=== PATIENT | female | born 1990 | race Caucasian/White ===

== ENCOUNTER 2017-03-17 03:12 | Emergency (ER) | payer OTHER ==
--- NOTE | 2017-03-17 03:58 | ER Document Report ---
HPI - HPI Patient complains to provider of: abscess lateral left lower leg Onset: Other - few days, used heat on it Onset/Duration: Gradual Quality of pain: Throbbing Pain Level: 3 Context: 26 yo normally healthy female with abscess left lower lateral leg. No hx MRSA. NKA Associated Symptoms: None Exacerbated by: Denies Relieved by: Denies - ROS ROS below otherwise negative: Yes Systems Reviewed and Negative: Yes All other systems reviewed and negative - REPRODUCTIVE LMP: 03/11/2017 Reproductive: DENIES: : - DERM Skin Color: Normal Past Medical History - General Information source: Patient - Social History Smoking Status: Current Every Day Smoker Chew tobacco use (# tins/day): No Frequency of alcohol use: None Drug Abuse: None Lives with: Spouse/Significant other Family History: Reviewed & Not Pertinent Patient has suicidal ideation: No Patient has homicidal ideation: No - Medical History Medical History: Negative Renal/ Medical History: Denies: Hx Peritoneal Dialysis Surgical Hx: Negative - Immunizations Hx Diphtheria, Pertussis, Tetanus Vaccination: Yes Vertical Provider Document - CONSTITUTIONAL Agree With Documented VS: Yes Exam Limitations: No Limitations General Appearance: No Apparent Distress - INFECTION CONTROL TRAVEL OUTSIDE OF THE [place] IN LAST 30 DAYS: No - MUSCULOSKELETAL/EXTREMETIES Musculoskeletal/Extremeties: MAEW, FROM, Tender - left lateral lower leg abscess , 2 cm induration, 2mm crusted center - NEURO Level of Consciousness: Awake, Alert - DERM Integumentary: Abscess Course - Vital Signs Vital signs: Temp Pulse Resp BP Pulse Ox 18 03/17/17 03:21 Procedures - Incision and Drainage Left Leg Time completed: 04:53 Type: Simple Anesthetic type: 1% Lidocaine mL's of anesthetic: 3 Blade size: 11 I&D procedure: Sterile dressing applied, Other - surgiscrub prep Incision Method: Incision made by scalpel Amount/type of drainage: large pus Notes: 03/17/17 04:53 corner of 4 x 4 placed in incision, coban dressing Discharge - Discharge Clinical Impression: left lateral lower leg abscess I & D Condition: Good Disposition: HOME, SELF-CARE Instructions: Abscess ([facility]), Post Incision and Drainage, Trimethoprim-Sulfa ( [facility]), Warm Packs ([facility]) Additional Instructions: warm compress finish the antibiotics to er if worse wash with antibacterial soap/dry dressing daily Please complete the patient satisfaction survey if you get one, and return it.. If you do not receive a survey, then you can go to the [facility] website, [email or web address] and place your comments about your very good care. Thank you very much. It was a pleasure being your medical provider today. Prescriptions: Sulfamethoxazole/Trimethoprim [Sulfamethoxazole-Tmp Ds Tablet] 1 each PO BID # 14 tablet
[2017-03-17] MEDS ORDERED: SULFAMETHOXAZOLE/TRIMETHOPRIM 800-160 MG TABLET PO ONE (03:59)
[2017-03-17 05:20] VITALS: BP 125/77
== END 2017-03-17 04:51 | disposition home or self-care (01) ==
LOC: ER 03:12
PROC: 0H9LXZZ Drainage of Left Lower Leg Skin, External Approach (ICD-10-PCS; principal; 2017-03-17)
DX: L02.416 Cutaneous abscess of left lower limb (principal); F17.200 Nicotine dependence, unspecified, uncomplicated
CPT/HCPCS: 99283

== ENCOUNTER 2018-05-28 17:39 | Emergency (ER) | payer SELFPAY ==
--- NOTE | 2018-05-28 20:05 | RADIOLOGY REPORT (SQ) ---
EXAM DESCRIPTION: ELBOW RIGHT OVER 2 VIEWS COMPLETED DATE/TIME: 05/28/2018 7:54 pm REASON FOR STUDY: pain right arm COMPARISON: None. NUMBER OF VIEWS: Four views. TECHNIQUE: AP, lateral, and both oblique radiographic images acquired of the right elbow. LIMITATIONS: None. FINDINGS: MINERALIZATION: Normal. BONES: No acute fracture or dislocation. No worrisome bone lesions. JOINT: No effusion. SOFT TISSUES: No soft tissue swelling. No foreign body. OTHER: Extensive orthopedic hardware is identified at the level of the distal humerus and olecranon p rocess of the proximal ulna. IMPRESSION: Orthopedic hardware related to previous trauma. No acute fracture or dislocation. Othe r findings as noted above TECHNICAL DOCUMENTATION: JOB ID: [id number] [facility]- All Rights Reserved Reading location - IP/workstation name: [email or web address]
--- NOTE | 2018-05-28 20:28 | ER Document Report ---
ED Extremity Problem, Upper - General Chief Complaint: Arm Pain Stated Complaint: RIGHT HAND PAIN/NUMBNESS Time Seen by Provider: 05/28/18 18:57 Mode of Arrival: Ambulatory Information source: Patient Notes: 27-year-old female presented to ED for numbness to the right arm from the shoulder to the fingertips. As well as pain and tenderness. She states she sometimes bumps it but she does not know of any definite injury at this time. Patient does have a history of surgery to the right elbow with plates and screws. She states today the arm and hand turn purple. Patient is alert and oriented respirations regular and unlabored speaking in full sentences walking with a even steady gait. TRAVEL OUTSIDE OF THE [place] IN LAST 30 DAYS: No - HPI Patient complains to provider of: Pain - And numbness from shoulder to fingertips at intervals, Right Onset: Yesterday Recent injury: No Quality of pain: Achy Severity of pain: Moderate Pain Level: 3 Associated symptoms: Numbness, Other - Tenderness Exacerbated by: Movement, Exertion Relieved by: Nothing Similar symptoms previously: Yes Recently seen / treated by doctor: No - Related Data Allergies/Adverse Reactions: No Known Allergies Allergy (Verified 03/17/17 03:18) Past Medical History - General Information source: Patient - Social History Smoking Status: Never Smoker Cigarette use (# per day): No Chew tobacco use (# tins/day): No Smoking Education Provided: No Frequency of alcohol use: Social Drug Abuse: None Occupation: [employer] Lives with: Family Family History: Reviewed & Not Pertinent Patient has suicidal ideation: No Patient has homicidal ideation: No - Past Medical History Cardiac Medical History: Reports: None Pulmonary Medical History: Reports: None EENT Medical History: Reports: None Neurological Medical History: Reports: None Endocrine Medical History: Reports: None Renal/ Medical History: Reports: None Malignancy Medical History: Reports: None GI Medical History: Reports: None Musculoskeletal Medical History: Reports Hx Musculoskeletal Deformity, Reports Hx Musculoskeletal Trauma Skin Medical History: Reports None Traumatic Medical History: Reports: Hx Fractures - Right elbow right fifth metatarsal Infectious Medical History: Reports: None Past Surgical History: Reports: Hx Oral Surgery - [place] teeth, Hx Orthopedic Surgery - [facility] right elbow with plates and screws - Immunizations Hx Diphtheria, Pertussis, Tetanus Vaccination: Yes History of Influenza Vaccine for 03/2017 - 08/2017 Season: No Review of Systems - Review of Systems Constitutional: No symptoms reported EENT: No symptoms reported Cardiovascular: No symptoms reported Respiratory: No symptoms reported Gastrointestinal: No symptoms reported Genitourinary: No symptoms reported Female Genitourinary: No symptoms reported Musculoskeletal: Other - Pain and numbness to the right arm she originally stated that her pain and numbness was from the shoulder to the fingers and then she stated it is more circumferential from the elbows to the fingers. Then she stated it was just in spots to her arm and her hand Skin: No symptoms reported Hematologic/Lymphatic: No symptoms reported Neurological/Psychological: No symptoms reported -: Yes All other systems reviewed and negative Physical Exam - Vital signs Vitals: Temp Pulse Resp BP Pulse Ox 99.5 F 95 18 128/81 H 97 05/28/18 17:55 05/28/18 17:55 05/28/18 17:55 05/28/18 17:55 05/28/18 17:55 Interpretation: Normal - General General appearance: Appears well, Alert - HEENT Head: Normocephalic, Atraumatic Eyes: Normal Pupils: PERRL - Respiratory Respiratory status: No respiratory distress Chest status: Nontender Breath sounds: Normal Chest palpation: Normal - Cardiovascular Rhythm: Regular Heart sounds: Normal auscultation Murmur: No - Abdominal Inspection: Normal Distension: No distension Bowel sounds: Normal Tenderness: Nontender Organomegaly: No organomegaly - Back Back: Normal, Nontender - Extremities General upper extremity: Normal inspection, Normal color, Normal ROM, Normal temperature General lower extremity: Normal inspection, Nontender, Normal color, Normal ROM , Normal temperature, Normal weight bearing. No: Maverick's sign Elbow: Tender - Right, Other - scars from surgery patient states that she has pain and numbness from the elbow to the fingertips.. No: Abrasion, Deformity, Dislocation, Ecchymosis, Instability, Joint effusion, Laceration, Limited ROM, Swollen bursa Forearm: Tender - Right. No: Abrasion, Deformity, Ecchymosis, Instability, Laceration Wrist: Tender Hand: Tender, No evidence of human bite, No evidence of FB. No: Abrasion, Deformity, Dislocation, Ecchymosis, Instability, Laceration, Nail injury, Swelling, Tendon deficit - Neurological Neuro grossly intact: Yes Cognition: Normal Orientation: AAOx4 [place] Coma Scale Eye Opening: Spontaneous John Coma Scale Verbal: Oriented John Coma Scale Motor: Obeys Commands John Coma Scale Total: 15 Speech: Normal Motor strength normal: LUE, RUE, LLE, RLE Sensory: Normal - Psychological Associated symptoms: Normal affect, Normal mood - Skin Skin Temperature: Warm Skin Moisture: Dry Skin Color: Normal Course - Re-evaluation Re-evalutation: 05/28/18 20:49 X-ray results were discussed with patient and written report of x-rays were given to patient. Patient was also shown the actual x-ray on the computer. There are no acute changes to the elbow at this time. Patient had full range of motion to the shoulder elbow hand wrist and fingers. She had 5 out of 5 strength on her shoulder and elbow. She had a firm admission nurse coordinator with her hand. Patient was treated with a sling for her discomfort and given instructions to follow-up with Dr. Delgado who did her surgery in 2014. - Vital Signs Vital signs: Temp Pulse Resp BP Pulse Ox 99.5 F 95 18 128/81 H 97 05/28/18 17:55 05/28/18 17:55 05/28/18 17:55 05/28/18 17:55 05/28/18 17:55 - Diagnostic Test Radiology reviewed: Image reviewed, Reports reviewed Procedures - Immobilization Right Elbow Time completed: 21:00 Pre-Proc Neuro Vasc Exam: Normal Immobilizer type: Sling Performed by: PCT Post-Proc Neuro Vasc Exam: Normal Alignment checked and good: Yes Discharge - Discharge Clinical Impression: Right elbow pain, Arm paresthesia, right Condition: Stable Disposition: HOME, SELF-CARE Instructions: Forearm Exercise Program ([facility]) Additional Instructions: Arm Pain, Nonspecific We did not find an obvious cause for your arm pain. There's no sign of blood clot, infection, heart attack, stroke, or other serious disease. Most of the time, this type of pain goes away. If it does, no further evaluation is necessary. If pain continues or keeps coming back, we can do further testing. Possible causes of vague arm pain include muscle or joint inflammation, disc disease in the neck, pressure on the nerves and artery in the chest or armpit ("thoracic outlet syndrome"), or heart disease. Rest the arm. Pain can be eased with an antiinflammatory pain medicine such as ibuprofen. If the pain involves a small area, a heating pad might help. Call the doctor or return if the arm becomes swollen, weak, discolored, or increasingly painful, or if you develop any other significant change in your health. You have stated that you have decreased feeling to your right arm. The x-ray shows that your plates and screws to the right arm are stable and there is no acute injuries noted on the x-ray. I have given you the name and number of the orthopedic surgeon who you state did the surgery in 2014 and I would like for you to call them tomorrow for follow-up visit. Acetaminophen Acetaminophen may be taken for pain relief or fever control. It's much safer than aspirin, offering a wider range of "safe" dosages. It is safe during . Some brand names are Tylenol, Panadol, Datril, Anacin 3, Tempra, and Liquiprin. Acetaminophen can be repeated every four hours. The following are maximum recommended dosages: WEIGHT Dose Drops Elixir Chewable( 80mg) (LBS.) drprs=droppers tsp=teaspoon 6 40 mg .4 ml (1/2) 6-11 80 mg .8 ml (full) 1/2 tsp 1 tab 12-16 120 mg 1 1/2 drprs 3/4 tsp 1 1/2 tabs 17-23 160 mg 2 drprs 1 tsp 2 tabs 24-30 240 mg 3 drprs 1 1/2 tsp 3 tabs 30-35 320 mg 2 tsp 4 tabs 36-41 360 mg 2 1/4 tsp 4 1 /2 tabs 42-47 400 mg 2 1/2 tsp 5 tabs 48-53 480 mg 3 tsp 6 tabs 54-59 520 mg 3 1/4 tsp 6 1 /2 tabs 60-64 560 mg 3 1/2 tsp 7 tabs 65-70 600 mg 3 3/4 tsp 7 1 /2 tabs 71-76 640 mg 4 tsp 8 tabs 77-82 720 mg 4 1/2 tsp 9 tabs 83-88 800 mg 5 tsp 10 tabs >89 pounds or adults 650 mg to 900 mg Acetaminophen can be repeated every four hours. Maximum daily dose not to exceed 4000 mg. These maximum recommended dosages are slightly higher than the dosages written on the product container, but these dosages are very safe and well below the toxic dosage for acetaminophen. Ibuprofen Ibuprofen is an excellent, safe drug for pain control. In addition, it has potent antiinflammatory effects which are beneficial, especially in the treatment of injuries, arthritis, or tendonitis. It's best to take ibuprofen with food. Persons with ulcer disease or allergy to aspirin should notify their physician of this before taking ibuprofen. Take the medication exactly as prescribed. Don't take additional doses unless instructed to do so by your doctor. If you develop wheezing, shortness of breath, hives, faintness, stomach pain, vomiting, or dark black stools, return for re-evaluation at once. I have ordered a sling to help you with the discomfort to your arm. Only wear this when you are up and walking around. Do not wear this to bed or when you are reclining in a chair. FOLLOW-UP CARE: If you have been referred to a physician for follow-up care, call the physician s office for an appointment as you were instructed or within the next two days. If you experience worsening or a significant change in your symptoms, notify the physician immediately or return to the Emergency Department at any time for re-evaluation. Forms: Elevated Blood Pressure, Return to Work Referrals: CHUCKIE LOPEZ MD [ACTIVE STAFF] - Follow up as needed
[2018-05-28 21:41] VITALS: BP 129/88
== END 2018-05-28 21:42 | disposition home or self-care (01) ==
LOC: ER 17:39
DX: M25.521 Pain in right elbow (principal); R20.0 Anesthesia of skin; Z98.890 Other specified postprocedural states; Z87.81 Personal history of (healed) traumatic fracture
CPT/HCPCS: 99283

== ENCOUNTER → 2019-02-09 | Outpatient (CLI) | payer SELFPAY ==
[2019-02-09 15:47] LABS: ABSOLUTE EOSINOPHILS # (AUTO) 0.1 10^3/uL (0.0-0.6); ABSOLUTE LYMPHOCYTES (AUTO) 2.2 10^3/uL (0.5-4.7); ABSOLUTE MONOCYTES (AUTO) 0.6 10^3/uL (0.1-1.4); ABSOLUTE NEUT (AUTO) 5.1 10^3/uL (1.7-8.2); BASOPHILS % (AUTO) 0.3 % (0-2); EOSINOPHILS % (AUTO) 1.5 % (0-6); HEMATOCRIT 38.6 % (36.0-47.0); HEMOGLOBIN 13.4 g/dL (12.0-15.5); LYMPHOCYTES % (AUTO) 27.3 % (13-45); MEAN CORPUSCULAR HEMOGLOBIN 29.2 pg (27.0-33.4); MEAN CORPUSCULAR HGB CONC 34.6 g/dL (32.0-36.0); MEAN CORPUSCULAR VOLUME 84 fl (80-97); PLATELET COUNT 262 10^3/uL (150-450); RED BLOOD COUNT 4.58 10^6/uL (3.72-5.28); RED CELL DISTRIBUTION WIDTH 12.7 % (11.5-14.0); SEGMENTED NEUTROPHILS % (AUTO) 63.9 % (42-78); TOTAL CELLS COUNTED % (AUTO) 100 %
[2019-02-09 16:21] LABS: ANION GAP 8 (5-19); BLOOD UREA NITROGEN 10 mg/dL (7-20); CALCIUM 9.3 mg/dL (8.4-10.2); CARBON DIOXIDE 30 mmol/L (22-30); CHLORIDE 100 mmol/L (98-107); GLUCOSE 93 mg/dL (75-110); POTASSIUM 4.5 mmol/L (3.6-5.0)
== END ==
LOC: OD 13:56
PROVIDERS: ATTEND Orthopaedic Surgery
DX: Z01.810 Encounter for preprocedural cardiovascular examination (principal); Z01.812 Encounter for preprocedural laboratory examination; M17.11 Unilateral primary osteoarthritis, right knee; E66.9 Obesity, unspecified; Z97.8 Presence of other specified devices
CPT/HCPCS: 36415; 80048; 85025